=== PATIENT | male | born 1950 | race Caucasian/White ===

== ENCOUNTER 2023-04-22 13:30 | Outpatient (RCR) | payer MEDICARE, OTHER | END 2023-05-09 | disposition home or self-care (01) | LOC: WSPT | DX: M54.41 Lumbago with sciatica, right side (principal); G89.29 Other chronic pain ==

== ENCOUNTER → 2024-04-26 | Outpatient (CLI) | payer MEDICARE, OTHER ==
[~2024-04-26] MED LIST: ASPIRIN 81M81 MG/TA2 PO; CRESTOR40 MG PO; FLOMAX 0.40.4 MG/CAP PO; KAPSPARGO SPRIN25 MG PO; NEURONTIN600 MG/TAB PO; NORCO 325 MG-51 TAB PO; PLAVIX 75MG TAB75 MG PO; PRINIVIL10 MG PO; ZOFRAN ODT4 MG PO
== END ==
LOC: COL.RAD 13:57
DX: Q62.39 Other obstructive defects of renal pelvis and ureter (principal)